=== PATIENT | female | born 1975 | race Caucasian/White ===

== ENCOUNTER 2019-03-05 17:08 | Emergency (ER) | payer BC ==
--- NOTE | 2019-03-05 18:02 | RAD REPORT ---
EXAM DESCRIPTION: Sasha Viera (2 Views)03/05/2019 5:53 pm CLINICAL HISTORY: Cough COMPARISON: None FINDINGS: The lungs are mildly to moderately hyperaerated Mildly prominent reticular lung opacities bilaterally The heart is normal size IMPRESSION: COPD Mildly prominent reticular lung opacities bilaterally may indicate a mild atypical pneumonia
--- NOTE | 2019-03-05 18:25 | EDPHYS ---
Physician Documentation [facility] Name: Jazmyne Juarez Age: 43 yrs Sex: Female : 1975 Arrival Date: 03/05/2019 Time: 17:10 Bed 27 Private MD: ED Physician Kali Edwards HPI: 03/05 18:22 This 43 yrs old Female presents to ER via Ambulatory with complaints of snw Shortness Of Breath, Wheezing > 1 Year. 18:22 The patient has shortness of breath at rest. Onset: The symptoms/episode began/occurred snw gradually, s/p influenza. Duration: The symptoms are continuous. The patient's shortness of breath is aggravated by exertion, light activity. Associated signs and symptoms: Pertinent positives: productive cough, fever. Severity of symptoms: At their worst the symptoms were moderate. It is unknown whether or not the patient has had similar symptoms in the past. The patient has been recently seen by a physician: the patient's primary care provider, with similar presenting complaints, started z-pack two days ago. 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 - Social history:: Smoking status: Patient uses tobacco products, smokes one pack cigarettes per day. Patient uses alcohol, admits to "couple of beers" a day. Patient/guardian denies using street drugs. - Ebola Screening: : Patient negative for fever greater than or equal to 101.5 degrees Fahrenheit, and additional compatible Ebola Virus Disease symptoms Patient denies exposure to infectious person Patient denies travel to an Ebola-affected area in the 21 days before illness onset No symptoms or risks identified at this time. ROS: 18:21 Eyes: Negative for injury, pain, redness, and discharge, ENT: Negative for injury, snw pain, and discharge, Neck: Negative for injury, pain, and swelling, Cardiovascular: Negative for chest pain, palpitations, and edema. 18:21 Abdomen/GI: Negative for abdominal pain, nausea, vomiting, diarrhea, and constipation, Back: Negative for injury and pain, : Negative for injury, bleeding, discharge, and swelling, MS/Extremity: Negative for injury and deformity, Skin: Negative for injury, rash, and discoloration, Neuro: Negative for headache, weakness, numbness, tingling, and seizure. 18:21 Constitutional: Positive for fever, malaise. 18:21 Respiratory: Positive for cough, shortness of breath, wheezing, expiratory. Exam: 18:18 Constitutional: This is a well developed, well nourished patient who is awake, alert, snw and in no acute distress. Head/Face: Normocephalic, atraumatic. Eyes: Pupils equal round and reactive to light, extra-ocular motions intact. Lids and lashes normal. Conjunctiva and sclera are non-icteric and not injected. Cornea within normal limits. Periorbital areas with no swelling, redness, or edema. 18:18 Neck: Trachea midline, no thyromegaly or masses palpated, and no cervical lymphadenopathy. Supple, full range of motion without nuchal rigidity, or vertebral point tenderness. No Meningismus. Chest/axilla: Normal chest wall appearance and motion. Nontender with no deformity. No lesions are appreciated. Cardiovascular: Regular rate and rhythm with a normal S1 and S2. No gallops, murmurs, or rubs. Normal PMI, no JVD. No pulse deficits. 18:18 Abdomen/GI: Soft, non-tender, with normal bowel sounds. No distension or tympany. No guarding or rebound. No evidence of tenderness throughout. Back: No spinal tenderness. No costovertebral tenderness. Full range of motion. Skin: Warm, dry with normal turgor. Normal color with no rashes, no lesions, and no evidence of cellulitis. MS/ Extremity: Pulses equal, no cyanosis. Neurovascular intact. Full, normal range of motion. Neuro: Awake and alert, GCS 15, oriented to person, place, time, and situation. Cranial nerves II-XII grossly intact. Motor strength 5/5 in all extremities. Sensory grossly intact. Cerebellar exam normal. Normal gait. Psych: Awake, alert, with orientation to person, place and time. Behavior, mood, and affect are within normal limits. 18:18 ENT: TM's: are normal, Nose: is normal, Mouth: is normal, Posterior pharynx: erythema, that is moderate, Voice: is hoarse. 18:18 Respiratory: the patient does not display signs of respiratory distress, Respirations: normal, Breath sounds: rhonchi, that are moderate, are located in both bases, wheezing: harsh cough. Vital Signs: 17:35 BP 133 / 91; Pulse 102; Resp 22; Temp 98(O); Pulse Ox 99% ; Weight 56.7 kg; Height 5 ch ft. 6 in. 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 snw 18:31 Data reviewed: vital signs, nurses notes. Data interpreted: Pulse oximetry: on room air snw is 97 %. Interpretation: normal. Counseling: I had a detailed discussion with the patient and/or guardian regarding: the historical points, exam findings, and any diagnostic results supporting the discharge/admit diagnosis, the presence of at least one elevated blood pressure reading (>120/80) during this emergency department visit, radiology results, the need for outpatient follow up, to return to the emergency department if symptoms worsen or persist or if there are any questions or concerns that arise at home, smoking cessation. Special discussion: Based on the history and exam findings, there is no indication for further emergent testing or inpatient evaluation. I discussed with the patient/guardian the need to see the primary care provider for further evaluation of the symptoms. 03/05 17:42 Order name: Chest Pa And Lat (2 Views) XRAY; Complete Time: 18:16 snw Administered Medications: 18:49 Drug: Tussionex Pennkinetic ER 5 ml Route: PO; sr5 19:04 Follow up: Response: Marked relief of symptoms sr5 18:50 Drug: Rocephin (cefTRIAXone) 1 grams Route: IM; Site: right ventrogluteal; sr5 19:05 Follow up: Response: No adverse reaction sr5 18:50 Drug: predniSONE 40 mg Route: PO; sr5 19:05 Follow up: Response: No adverse reaction sr5 18:50 Drug: Pepcid 20 mg Route: PO; sr5 19:05 Follow up: Response: No adverse reaction sr5 18:50 Drug: Albuterol 2.5 mg Route: Inhalation; sr5 19:04 Follow up: Response: No change in condition sr5 Disposition: 03/05/19 18:24 Discharged to Home. Impression: Pneumonia, unspecified organism. - Condition is Stable. - Discharge Instructions: Fever, Adult, Community-Acquired Pneumonia, Adult, Cough, Adult, Rehydration, Adult. - Prescriptions for Augmentin 875- 125 mg Oral Tablet - take 1 tablet by ORAL route every 12 hours for 10 days; 20 tablet. Tessalon Perles 100 mg Oral Capsule - take 1 capsule by ORAL route every 8 hours As needed; 15 capsule. Albuterol Sulfate 2.5 mg /3 mL (0.083 %) Inhalation Solution for Nebulization - inhale 1 unit by NEBULIZATION route every 4-6 hours As needed; 1 box. Prednisone 20 mg Oral Tablet - take 2 tablet by ORAL route once daily for 5 days; 10 tablet. Albuterol Sulfate 90 mcg/actuation - inhale 1-2 puff by INHALATION route every 4-6 hours; 1 Inhaler. promethazine 25 mg Oral Tablet - take 1 tablet by ORAL route every 6 hours As needed; 20 tablet. - Work release form, Medication Reconciliation Form, Thank You Letter, Antibiotic Education, Prescription Opioid Use form. - Follow up: Private Physician; When: 2 - 3 days; Reason: Recheck today's complaints, Continuance of care, Re-evaluation by your physician. Follow up: Emergency Department; When: As needed; Reason: Worsening of condition. Addendum: 03/06/2019 19:39 Co-signature as Attending Physician, Kali Edwards MD I agree with the assessment and k dr plan of care. Signatures: Dispatcher [employer] Dacia Sal, Kali Parks RN, ch, MD MD [facility] Dariela Bateman, SENIOR HUMAN RESOURCES REPRESENTATIVE-C SENIOR HUMAN RESOURCES REPRESENTATIVE-Trent Coffey RN RN sr5 Corrections: (The following items were deleted from the chart) 03/05 19:16 18:24 03/05/2019 18:24 Discharged to Home. Impression: Pneumonia, unspecified organism. sr5 Condition is Stable. Forms are Medication Reconciliation Form, Thank You Letter, Antibiotic Education, Prescription Opioid Use. Follow up: Private Physician; When: 2 - 3 days; Reason: Recheck today's complaints, Continuance of care, Re-evaluation by your physician. Follow up: Emergency Department; When: As needed; Reason: Worsening of condition. w
--- NOTE | 2019-03-05 18:25 | ER ---
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 Transition of care: patient was not received from another setting of care. Onset of symptoms was February 19, 2019. Risk Assessment: Do you want to hurt yourself or someone else? Patient reports no desire to harm self or others. Initial Sepsis Screen: Does the patient meet any 2 criteria? No. Patient's initial sepsis screen is negative. Does the patient have a suspected source of infection? No. Patient's initial sepsis screen is negative. Care prior to arrival: None. 17:34 Method Of Arrival: Ambulatory 17:34 Acuity: PILAR 3 Triage Assessment: 17:35 General: Appears in no apparent distress. uncomfortable, Behavior is calm, cooperative, ch appropriate for age. Pain: Complains of pain in chest. Respiratory: Reports shortness of breath at rest on exertion cough that is productive. 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 - Social history:: Smoking status: Patient uses tobacco products, smokes one pack cigarettes per day. Patient uses alcohol, admits to "couple of beers" a day. Patient/guardian denies using street drugs. - Ebola Screening: : Patient negative for fever greater than or equal to 101.5 degrees Fahrenheit, and additional compatible Ebola Virus Disease symptoms Patient denies exposure to infectious person Patient denies travel to an Ebola-affected area in the 21 days before illness onset No symptoms or risks identified at this time. Screenin:11 Abuse screen: Denies threats or abuse. Nutritional screening: No deficits noted. sr5 Tuberculosis screening: No symptoms or risk factors identified. Fall Risk None identified. Assessment: 18:11 Reassessment: Assumed care of pt. Pt sitting upright, fully AA\\T\\Ox4, equal unlabored sr5 resp, +cough noted, no sputum at this time, +expiratory wheezing at bases bilat, worse on LEFT lung. Skin warm/dry/nc, on monitor, awaiting xray report. 19:13 Reassessment: Patient reports feeling "relaxed" following medicine, steady gait to sr5 restroom upon discharge, with family. Vital Signs: 17:35 BP 133 / 91; Pulse 102; Resp 22; Temp 98(O); Pulse Ox 99% ; Weight 56.7 kg; Height 5 ch ft. 6 in. 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 ag5 17:30 [facility]iel[facility] Bateman FNP-C [facility] snw 17:30 Kali Edwards MD is Attending Physician. snw 17:35 Triage completed. ch 17:35 Arm band placed on left wrist. Patient placed in waiting room. ch 17:38 Dacia Peguero, RN is Primary Nurse. ch 17:54 Chest Pa And Lat (2 Views) XRAY In Process Unspecified. EDMS 18:11 Patient has correct armband on for positive identification. Call light in reach. Side sr5 rails up X 1. Pulse ox on. NIBP on. 19:13 No provider procedures requiring assistance completed. Patient did not have IV access sr5 during this emergency room visit. Administered Medications: 18:49 Drug: Tussionex Pennkinetic ER 5 ml Route: PO; sr5 19:04 Follow up: Response: Marked relief of symptoms sr5 18:50 Drug: Rocephin (cefTRIAXone) 1 grams Route: IM; Site: right ventrogluteal; sr5 19:05 Follow up: Response: No adverse reaction sr5 18:50 Drug: predniSONE 40 mg Route: PO; sr5 19:05 Follow up: Response: No adverse reaction sr5 18:50 Drug: Pepcid 20 mg Route: PO; sr5 19:05 Follow up: Response: No adverse reaction sr5 18:50 Drug: Albuterol 2.5 mg Route: Inhalation; sr5 19:04 Follow up: Response: No change in condition sr5 Outcome: 18:24 Discharge ordered by . maria e 19:13 Discharged to home ambulatory. sr5 19:13 Condition: good 19:13 Discharge instructions given to patient, Instructed on discharge instructions, follow up and referral plans. medication usage, Demonstrated understanding of instructions, follow-up care, medications, Prescriptions given X 4. 19:16 Patient left the ED. sr5 Signatures: Dispatcher [employer] EDDacia Valdes, RN RN Dariela Hill, GUTTER MOUTH CUTTER-C GUTTER MOUTH CUTTER-Csnw Trent Redman RN RN sr5 Camille Young mb4 Cheryl Giraldo
[2019-03-05] MEDS ORDERED: ALBUTEROL 2.5 MG/3 ML NEB SOL ONE (18:37)
[2019-03-05] MEDS ORDERED: HYDROCODONE/CHLORPHEN 5 ML/OSYR ONE (18:37)
[2019-03-05] MEDS ORDERED: CEFTRIAXONE 1000 MG/VIAL ONE (18:37)
[2019-03-05] MEDS ORDERED: FAMOTIDINE 20 MG TAB ONE (18:38)
[2019-03-05] MEDS ORDERED: WATER FOR INJ,STERILE 10 ML ONE (18:38)
[2019-03-05] MEDS ORDERED: predniSONE 20 MG TAB ONE (18:38)
[2019-03-05 19:27] VITALS: TEMP 98
[2019-03-05 19:30] VITALS: BP 167/108; O2SAT 100
== END 2019-03-05 19:16 | disposition home or self-care (01) ==
LOC: ER 17:08
DX: J18.9 Pneumonia, unspecified organism (principal); F17.210 Nicotine dependence, cigarettes, uncomplicated
CPT/HCPCS: 71046; 96372; 99284; J7512